=== PATIENT | male | born 1980 | race Caucasian/White ===

== ENCOUNTER 2019-03-04 22:17 | Emergency (ER) | payer BC ==
[~2019-03-04] VITALS: Ht 185.4 cm; Wt 118.2 kg
[~2019-03-04 22:17] MED LIST: LEVAQUIN 5500 MG/TA1 PO; NO HOME MEDICATIONS
[2019-03-04 22:27] VITALS: BP 116/68; TEMP 97.7
[2019-03-04] MEDS ORDERED: SYNTHROID 0.0.025 MG (23:42)
[2019-03-04] MEDS ORDERED: WELLBUTRIN 75MG75 MG (23:42)
[2019-03-05 00:02] VITALS: PULSE 87
== END 2019-03-05 00:02 | disposition home or self-care (01) ==
LOC: COL.ER 22:17
DX: S05.01XA Injury of conjunctiva and corneal abrasion without foreign body, right eye, initial encounter (principal); E03.9 Hypothyroidism, unspecified; F32.9 Major depressive disorder, single episode, unspecified; X58.XXXA Exposure to other specified factors, initial encounter